=== PATIENT | male | born 1935 ===

== ENCOUNTER 2022-12-08 12:25 | Inpatient (IN) | payer MEDICARE ==
[~2022-12-08 12:25] MED LIST: Iopamidol-370 76% 500 ML 1 ML ONE
[2022-12-08 13:34] LABS: #Lymphocytes 0.9 thou/uL (1.20-3.40); #Monocytes 1.3 thou/uL (0.11-0.59); #Neutrophils 11.1 thou/uL (1.40-6.50); %Basophils 0.3 % (0.0-1.0); %Eosinophils 0.1 % (0.0-10.0); %Lymphocytes 6.9 % (21.0-51.0); %Monocytes 9.8 % (0.0-10.0); %Neutrophils 82.9 % (42.0-75.0); Hemoglobin 12.8 g/dL (14.0-18.0); Mean Corpuscular HGB CONC 32.6 g/dL (32.0-36.0); Mean Corpuscular Hemoglobin 29.9 pg (27.0-31.0); Mean Corpuscular Volume 91.7 fl (78.0-98.0); Mean Platelet Volume 8.9 fL (7.4-10.4); Platelet Count 200 10x3/uL (130-400); RBC Distribution Width 12.3 % (11.5-14.5); Red Blood Cell (RBC) Count 4.27 mill/uL (4.70-6.10); White Blood Cell (WBC) Count 13.4 10x3/uL (4.8-10.8)
[2022-12-08 13:53] LABS: ALT (SGPT) 36 U/L (8-55); AST (SGOT) 51 U/L (5-34); Albumin 3.9 g/dL (3.4-4.8); Alkaline Phosphatase 85 U/L (40-110); Anion Gap 18 mmol/L (10-20); BUN (Urea Nitrogen) 35 mg/dL (8.4-25.7); Bilirubin, Total 0.8 mg/dL (0.2-1.2); Calc. Creatinine Clearance 0 mL/min (70-130); Calcium 10.4 mg/dL (7.8-10.44); Carbon Dioxide 26 mmol/L (23-31); Chloride 109 mmol/L (98-107); Estimated GFR 36; Globulin 5.3 g/dL (2.4-3.5); Glucose 143 mg/dL (83-110); Potassium 4.8 mmol/L (3.5-5.1); Protein, Total 9.2 g/dL (5.8-8.1); Sodium 148 mmol/L (136-145)
[2022-12-08 14:41] LABS: CKMB 0.5 ng/mL (0-6.6)
[2022-12-08] MEDS ORDERED: hydrALAZINE 20 MG/ML VIAL ONE (16:29)
[2022-12-08 17:15] LABS: Bilirubin Negative (Negative); Blood, Urine 1+ (Negative); Clarity Clear (Clear); Glucose, Urine (Dipstick) Normal (Negative); Ketone, Urine Negative (Negative); Leukocyte 500 Leu/uL (Negative); Nitrite Negative (Negative); Protein, Urine (Dipstick) 30 mg/dL (Neg-Trace); Specific Gravity, Urine 1.023 (1.002-1.036); Squamous Epithelial 0-3 HPF (0-3); Urobilinogen Normal mg/dL (Less than 2); WBC/HPF Greater than 50 HPF (0-3); pH, Urine 7.5 (5.0-9.0)
[2022-12-08 17:16] LABS: Bacteria/HPF 1+ HPF (None Seen)
[2022-12-08] MEDS ORDERED: cefTRIAXone\\ROCEPHIN 2 GM VIAL ONE (18:37)
[2022-12-08] MEDS ORDERED: Acetaminophen 650 MG Suppository ONE (19:10)
[2022-12-08] MEDS ORDERED: Ondansetron PF 4 MG/2 ML Vial IVP PRN (19:47)
[2022-12-08] MEDS ORDERED: Dextrose 5% in Water 1,000 ML IV PRN (19:54)
[2022-12-08] MEDS ORDERED: HumaLOG 300 UNITS/3 ML VIAL SC PRN ×2 (19:54)
[2022-12-08] MEDS ORDERED: Dextrose 50% Abboject 50 ML SYRINGE SLOW IVP PRN (19:54)
[2022-12-08] MEDS ORDERED: Fleet Enema 133 ML BOT PR SCH (20:00)
[2022-12-08] MEDS ORDERED: Sodium Chloride 0.9% 500 ML IV SCH (20:00)
[2022-12-08] MEDS ORDERED: Pantoprazole 40 MG VIAL IVP SCH (20:00)
[2022-12-08 20:18] LABS: Amphetamine Not Detected (NotDetected); Barbiturates Screen Not Detected (NotDetected); Benzodiazepine Screen Not Detected (NotDetected); Cocaine Metabolite Screen Not Detected (NotDetected); Methadone Not Detected (NotDetected); Methamphetamine Not Detected (NotDetected); Opiate Screen Not Detected (NotDetected); Oxycodone Screen Not Detected (NotDetected); Phencyclidine (PCP) Not Detected (NotDetected); THC/Cannabinoid Screen Not Detected (NotDetected); Tricyclic Screen Not Detected (NotDetected)
[2022-12-08 20:36] LABS: Troponin I 0.063 ng/mL (< 0.028)
[2022-12-08] MEDS: Docusate Sodium 10 MG/1 ML Oral Suspension PO SCH (21:24)
[2022-12-08] MEDS: Heparin 5,000 UNITS/ML VIAL SC SCH (21:31)
[2022-12-08] MEDS: Sodium Chloride 0.9% 1,000 ML IV SCH (21:43)
[2022-12-08] MEDS ORDERED: Acetaminophen 650 MG Suppository PR PRN (23:00)
[2022-12-09 00:07] VITALS: BMI 18.8
[2022-12-09 00:27] LABS: Anion Gap 18 mmol/L (10-20); BUN (Urea Nitrogen) 36 mg/dL (8.4-25.7); Calc. Creatinine Clearance 23 mL/min (70-130); Calcium 9.8 mg/dL (7.8-10.44); Carbon Dioxide 23 mmol/L (23-31); Chloride 113 mmol/L (98-107); Estimated GFR 43; Glucose 144 mg/dL (83-110); Potassium 3.7 mmol/L (3.5-5.1); Sodium 150 mmol/L (136-145)
[2022-12-09 00:32] LABS: Troponin I 0.067 ng/mL (< 0.028)
[2022-12-09] MEDS ORDERED: Metoprolol Tartrate 5 MG/5 ML VIAL IVP SCH (02:45)
[2022-12-09] MEDS: Cefepime 1 GM in Sodium Chloride 0.9% 100 ML IVPB SCH (05:49)
[2022-12-09 06:05] LABS: #Lymphocytes 1.1 thou/uL (1.20-3.40); #Monocytes 1.3 thou/uL (0.11-0.59); #Neutrophils 12.2 thou/uL (1.40-6.50); %Basophils 0.1 % (0.0-1.0); %Eosinophils 0.1 % (0.0-10.0); %Lymphocytes 7.3 % (21.0-51.0); %Monocytes 8.9 % (0.0-10.0); %Neutrophils 83.6 % (42.0-75.0); Hemoglobin 12.5 g/dL (14.0-18.0); Mean Corpuscular HGB CONC 29.5 g/dL (32.0-36.0); Mean Corpuscular Hemoglobin 28.8 pg (27.0-31.0); Mean Corpuscular Volume 97.6 fl (78.0-98.0); Mean Platelet Volume 9.1 fL (7.4-10.4); Platelet Count 214 10x3/uL (130-400); RBC Distribution Width 12.4 % (11.5-14.5); Red Blood Cell (RBC) Count 4.34 mill/uL (4.70-6.10); White Blood Cell (WBC) Count 14.6 10x3/uL (4.8-10.8)
[2022-12-09] MEDS: Polyethylene Glycol 3350 17 GM Packet PO SCH (09:18)
[2022-12-09] MEDS: Heparin 5,000 UNITS/ML VIAL SC SCH ×2 (09:19→20:18)
[2022-12-09] MEDS: Pantoprazole 40 MG VIAL IVP SCH (09:19)
[2022-12-09 09:23] LABS: Albumin 3.3 g/dL (3.4-4.8)
[2022-12-09 09:24] LABS: Chloride 113 mmol/L (98-107); Potassium 3.8 mmol/L (3.5-5.1)
[2022-12-09 09:25] LABS: Glucose 129 mg/dL (83-110)
[2022-12-09 09:27] LABS: Anion Gap 18 mmol/L (10-20); Bilirubin, Total 0.5 mg/dL (0.2-1.2); Carbon Dioxide 26 mmol/L (23-31)
[2022-12-09 09:28] LABS: Alkaline Phosphatase 82 U/L (40-110)
[2022-12-09 09:29] LABS: Calc. Creatinine Clearance 22 mL/min (70-130); Estimated GFR 42
[2022-12-09 09:30] LABS: BUN (Urea Nitrogen) 37 mg/dL (8.4-25.7)
[2022-12-09 09:31] LABS: ALT (SGPT) 48 U/L (8-55); AST (SGOT) 65 U/L (5-34); Bilirubin, Direct 0.3 mg/dL (0.1-0.3)
[2022-12-09 09:34] LABS: Sodium 153 mmol/L (136-145)
[2022-12-09] MEDS: Sodium Chloride 0.9% 1,000 ML IV SCH (09:43)
[2022-12-09] MEDS ORDERED: Sodium Chloride 0.45 % 250 ML BAG IV SCH (09:45)
[2022-12-09] MEDS: Docusate Sodium 10 MG/1 ML Oral Suspension PO SCH (10:29)
[2022-12-09] MEDS: Docusate Sodium 100 MG/10 ML UDCUP PO SCH (20:18)
[2022-12-10] MEDS ORDERED: Sodium Chloride 0.45% 1,000 ML IV SCH (04:00)
[2022-12-10] MEDS: Cefepime 1 GM in Sodium Chloride 0.9% 100 ML IVPB SCH (05:47)
[2022-12-10 05:49] LABS: #Lymphocytes 1.1 thou/uL (1.20-3.40); #Monocytes 0.8 thou/uL (0.11-0.59); #Neutrophils 8.1 thou/uL (1.40-6.50); %Basophils 0.1 % (0.0-1.0); %Eosinophils 0.4 % (0.0-10.0); %Lymphocytes 11.2 % (21.0-51.0); %Monocytes 7.9 % (0.0-10.0); %Neutrophils 80.3 % (42.0-75.0); Hemoglobin 10.5 g/dL (14.0-18.0); Mean Corpuscular Hemoglobin 29.5 pg (27.0-31.0); Mean Corpuscular Volume 95.2 fl (78.0-98.0); Mean Platelet Volume 8.5 fL (7.4-10.4); Platelet Count 193 10x3/uL (130-400); RBC Distribution Width 12.1 % (11.5-14.5); Red Blood Cell (RBC) Count 3.56 mill/uL (4.70-6.10)
[2022-12-10 06:09] LABS: Anion Gap 14 mmol/L (10-20); BUN (Urea Nitrogen) 45 mg/dL (8.4-25.7); Calc. Creatinine Clearance 22 mL/min (70-130); Calcium 9.7 mg/dL (7.8-10.44); Carbon Dioxide 27 mmol/L (23-31); Chloride 116 mmol/L (98-107); Estimated GFR 41; Glucose 101 mg/dL (83-110); Magnesium 2.3 mg/dL (1.6-2.6); Potassium 3.4 mmol/L (3.5-5.1)
[2022-12-10 06:13] LABS: Sodium 154 mmol/L (136-145)
[2022-12-10] MEDS ORDERED: Metoprolol Tartrate 5 MG/5 ML VIAL IVP SCH (07:00)
[2022-12-10] MEDS: Dextrose 5% in Water 1,000 ML IV SCH ×2 (09:38→23:53)
[2022-12-10] MEDS: Pantoprazole 40 MG VIAL IVP SCH (09:39)
[2022-12-10] MEDS: Heparin 5,000 UNITS/ML VIAL SC SCH ×2 (09:39→21:04)
[2022-12-10] MEDS: Polyethylene Glycol 3350 17 GM Packet PO SCH (09:39)
[2022-12-10] MEDS: Docusate Sodium 100 MG/10 ML UDCUP PO SCH ×2 (10:59→21:04)
[2022-12-10] MEDS: Metoprolol Tartrate 100 MG TAB PO SCH (21:04)
[2022-12-11 05:13] LABS: #Eosinphils 0.2 thou/uL (0.0-0.7); #Lymphocytes 1.1 thou/uL (1.20-3.40); #Monocytes 0.7 thou/uL (0.11-0.59); #Neutrophils 6.6 thou/uL (1.40-6.50); %Eosinophils 1.8 % (0.0-10.0); %Lymphocytes 13.1 % (21.0-51.0); %Monocytes 8.5 % (0.0-10.0); %Neutrophils 76.6 % (42.0-75.0); Hemoglobin 10.1 g/dL (14.0-18.0); Mean Corpuscular HGB CONC 31.7 g/dL (32.0-36.0); Mean Corpuscular Hemoglobin 29.5 pg (27.0-31.0); Mean Corpuscular Volume 92.9 fl (78.0-98.0); Mean Platelet Volume 8.6 fL (7.4-10.4); Platelet Count 184 10x3/uL (130-400); RBC Distribution Width 12.2 % (11.5-14.5); Red Blood Cell (RBC) Count 3.43 mill/uL (4.70-6.10); White Blood Cell (WBC) Count 8.6 10x3/uL (4.8-10.8)
[2022-12-11 05:34] LABS: Anion Gap 11 mmol/L (10-20); BUN (Urea Nitrogen) 46 mg/dL (8.4-25.7); Calc. Creatinine Clearance 23 mL/min (70-130); Calcium 9.5 mg/dL (7.8-10.44); Carbon Dioxide 28 mmol/L (23-31); Chloride 115 mmol/L (98-107); Estimated GFR 43; Glucose 127 mg/dL (83-110); Magnesium 2.3 mg/dL (1.6-2.6); Potassium 3.4 mmol/L (3.5-5.1)
[2022-12-11 05:39] LABS: Sodium 151 mmol/L (136-145)
[2022-12-11] MEDS: Cefepime 1 GM in Sodium Chloride 0.9% 100 ML IVPB SCH (05:43)
[2022-12-11] MEDS ORDERED: Docusate 100 MG CAP PO SCH (09:00)
[2022-12-11] MEDS: Ferrous Sulfate 325 MG TAB PO SCH (09:22)
[2022-12-11] MEDS: hydrALAZINE 10 MG TAB PO SCH (09:26)
[2022-12-11] MEDS: Heparin 5,000 UNITS/ML VIAL SC SCH ×2 (09:26→21:40)
[2022-12-11] MEDS: Pantoprazole 40 MG VIAL IVP SCH (09:26)
[2022-12-11] MEDS: Potassium Chloride 20 MEQ TAB PO SCH (09:26)
[2022-12-11] MEDS: Furosemide 20 MG TAB PO SCH (09:26)
[2022-12-11] MEDS: Lisinopril 20 MG TAB PO SCH (09:27)
[2022-12-11] MEDS: metFORMIN 500 MG TAB PO SCH (09:27)
[2022-12-11] MEDS: Atorvastatin Calcium 40 MG TAB PO SCH (09:27)
[2022-12-11] MEDS: Tamsulosin HCl 0.4 MG CAP PO SCH (09:27)
[2022-12-11] MEDS: Polyethylene Glycol 3350 17 GM Packet PO SCH (09:27)
[2022-12-11] MEDS: Multivitamin W/ Minerals 1 TAB PO SCH (09:27)
[2022-12-11] MEDS: Metoprolol Tartrate 100 MG TAB PO SCH ×2 (09:27→21:40)
[2022-12-11] MEDS: Docusate Sodium 100 MG/10 ML UDCUP PO SCH ×2 (09:27→21:40)
[2022-12-11] MEDS: Dextrose 5% in Water 1,000 ML IV SCH (15:05)
[2022-12-11] MEDS: cefTRIAXone\\ROCEPHIN 1 GM in Sodium Chloride 0.9% 100 ML IVPB SCH (18:36)
[2022-12-12] MEDS: Dextrose 5% in Water 1,000 ML IV SCH ×2 (04:28→20:52)
[2022-12-12 05:30] LABS: #Eosinphils 0.3 thou/uL (0.0-0.7); #Lymphocytes 1.4 thou/uL (1.20-3.40); #Monocytes 0.8 thou/uL (0.11-0.59); #Neutrophils 5.4 thou/uL (1.40-6.50); %Basophils 0.2 % (0.0-1.0); %Eosinophils 3.7 % (0.0-10.0); %Lymphocytes 17.2 % (21.0-51.0); %Monocytes 9.8 % (0.0-10.0); %Neutrophils 69.1 % (42.0-75.0); Hemoglobin 9.9 g/dL (14.0-18.0); Mean Corpuscular HGB CONC 31.2 g/dL (32.0-36.0); Mean Corpuscular Hemoglobin 29.2 pg (27.0-31.0); Mean Corpuscular Volume 93.6 fl (78.0-98.0); Mean Platelet Volume 8.4 fL (7.4-10.4); Platelet Count 176 10x3/uL (130-400); RBC Distribution Width 11.9 % (11.5-14.5); Red Blood Cell (RBC) Count 3.37 mill/uL (4.70-6.10); White Blood Cell (WBC) Count 7.8 10x3/uL (4.8-10.8)
[2022-12-12 05:48] LABS: ALT (SGPT) 72 U/L (8-55); AST (SGOT) 84 U/L (5-34); Albumin 2.7 g/dL (3.4-4.8); Alkaline Phosphatase 65 U/L (40-110); Anion Gap 12 mmol/L (10-20); BUN (Urea Nitrogen) 35 mg/dL (8.4-25.7); Bilirubin, Total 0.4 mg/dL (0.2-1.2); Calc. Creatinine Clearance 28 mL/min (70-130); Calcium 9.1 mg/dL (7.8-10.44); Carbon Dioxide 26 mmol/L (23-31); Chloride 112 mmol/L (98-107); Estimated GFR 55; Globulin 3.9 g/dL (2.4-3.5); Glucose 119 mg/dL (83-110); Potassium 3.7 mmol/L (3.5-5.1); Protein, Total 6.6 g/dL (5.8-8.1); Sodium 146 mmol/L (136-145)
[2022-12-12] MEDS: Polyethylene Glycol 3350 17 GM Packet PO SCH (09:13)
[2022-12-12] MEDS: Atorvastatin Calcium 40 MG TAB PO SCH (09:13)
[2022-12-12] MEDS: Furosemide 20 MG TAB PO SCH (09:13)
[2022-12-12] MEDS: Ferrous Sulfate 325 MG TAB PO SCH (09:13)
[2022-12-12] MEDS: Docusate Sodium 100 MG/10 ML UDCUP PO SCH ×2 (09:13→20:39)
[2022-12-12] MEDS: hydrALAZINE 10 MG TAB PO SCH (09:13)
[2022-12-12] MEDS: Lisinopril 20 MG TAB PO SCH (09:13)
[2022-12-12] MEDS: Potassium Chloride 20 MEQ TAB PO SCH (09:14)
[2022-12-12] MEDS: Heparin 5,000 UNITS/ML VIAL SC SCH ×2 (09:14→20:39)
[2022-12-12] MEDS: Tamsulosin HCl 0.4 MG CAP PO SCH (09:14)
[2022-12-12] MEDS: Metoprolol Tartrate 100 MG TAB PO SCH ×2 (09:14→20:38)
[2022-12-12] MEDS: Multivitamin W/ Minerals 1 TAB PO SCH (09:14)
[2022-12-12] MEDS: metFORMIN 500 MG TAB PO SCH (09:14)
[2022-12-12] MEDS: Pantoprazole 40 MG VIAL IVP SCH (09:15)
[2022-12-12 10:59] LABS: INR-International Normal Ratio 1.1
[2022-12-12 11:00] LABS: PTT 74.7 sec (22.9-36.1)
[2022-12-12] MEDS ORDERED: Ondansetron HCl/PF 4 MG/2 ML Vial IVP PRN (15:24)
[2022-12-12] MEDS ORDERED: Promethazine HCl 25 MG/ML VIAL IM PRN (15:24)
[2022-12-12] MEDS ORDERED: Bupivacaine/Epinephrine 0.25% 30 ML VIAL ONE (15:37)
[2022-12-12] MEDS ORDERED: PHENYLEPHRINE-NS 100 MCG/ML 10 ML SYRINGE ONE (15:50)
[2022-12-12] MEDS ORDERED: Ondansetron PF 4 MG/2 ML Vial ONE (15:50)
[2022-12-12] MEDS ORDERED: fentaNYL PF 100 MCG/2 ML SYRINGE ONE (15:50)
[2022-12-12] MEDS ORDERED: Glycopyrrolate 0.2 MG/ML 5 ML SYRINGE ONE (15:50)
[2022-12-12] MEDS ORDERED: PROPOFOL 200 MG/20 ML VIAL ONE (15:50)
[2022-12-12] MEDS ORDERED: Rocuronium Bromide 10 MG/ML (10ML VIAL) ONE (15:50)
[2022-12-12] MEDS ORDERED: Lidocaine 1% PF 5 ML VIAL ONE (15:50)
[2022-12-12] MEDS ORDERED: NEOSTIGMINE 3 MG/3 ML SYR 3 MG/3 ML SYRINGE ONE (15:50)
[2022-12-12] MEDS ORDERED: Dexamethasone 20 MG/5 ML VIAL ONE (15:50)
[2022-12-12] MEDS ORDERED: SUGAMMADEX SODIUM 200 MG/2 ML VIAL ONE (16:41)
[2022-12-12] MEDS: Acetaminophen 650 MG Suppository PR SCH (19:34)
[2022-12-12] MEDS: cefTRIAXone\\ROCEPHIN 1 GM in Sodium Chloride 0.9% 100 ML IVPB SCH (20:38)
[2022-12-13] MEDS: Acetaminophen 650 MG Suppository PR SCH ×4 (00:37→19:22)
[2022-12-13 05:48] LABS: #Lymphocytes 1.1 thou/uL (1.20-3.40); #Monocytes 0.6 thou/uL (0.11-0.59); #Neutrophils 6.9 thou/uL (1.40-6.50); %Basophils 0.5 % (0.0-1.0); %Eosinophils 0.3 % (0.0-10.0); %Lymphocytes 12.7 % (21.0-51.0); %Monocytes 7.2 % (0.0-10.0); %Neutrophils 79.3 % (42.0-75.0); Hemoglobin 10.7 g/dL (14.0-18.0); Mean Corpuscular HGB CONC 31.2 g/dL (32.0-36.0); Mean Corpuscular Hemoglobin 28.8 pg (27.0-31.0); Mean Corpuscular Volume 92.2 fl (78.0-98.0); Mean Platelet Volume 8.5 fL (7.4-10.4); Platelet Count 206 10x3/uL (130-400); RBC Distribution Width 11.8 % (11.5-14.5); Red Blood Cell (RBC) Count 3.71 mill/uL (4.70-6.10); White Blood Cell (WBC) Count 8.7 10x3/uL (4.8-10.8)
[2022-12-13 06:05] LABS: ALT (SGPT) 77 U/L (8-55); AST (SGOT) 110 U/L (5-34); Alkaline Phosphatase 72 U/L (40-110); Anion Gap 12 mmol/L (10-20); BUN (Urea Nitrogen) 28 mg/dL (8.4-25.7); Bilirubin, Total 0.4 mg/dL (0.2-1.2); Calc. Creatinine Clearance 29 mL/min (70-130); Calcium 9.1 mg/dL (7.8-10.44); Carbon Dioxide 27 mmol/L (23-31); Chloride 106 mmol/L (98-107); Estimated GFR 57; Globulin 4.2 g/dL (2.4-3.5); Glucose 142 mg/dL (83-110); Potassium 4.2 mmol/L (3.5-5.1); Protein, Total 7.2 g/dL (5.8-8.1); Sodium 141 mmol/L (136-145)
[2022-12-13] MEDS: Metoprolol Tartrate 100 MG TAB PO SCH ×2 (08:49→21:00)
[2022-12-13] MEDS: Lisinopril 20 MG TAB PO SCH (08:49)
[2022-12-13] MEDS: Potassium Chloride 20 MEQ TAB PO SCH (08:49)
[2022-12-13] MEDS: Tamsulosin HCl 0.4 MG CAP PO SCH (08:49)
[2022-12-13] MEDS: Atorvastatin Calcium 40 MG TAB PO SCH (08:49)
[2022-12-13] MEDS: Docusate Sodium 100 MG/10 ML UDCUP PO SCH ×2 (08:50→21:00)
[2022-12-13] MEDS: Multivitamin W/ Minerals 1 TAB PO SCH (08:50)
[2022-12-13] MEDS: hydrALAZINE 10 MG TAB PO SCH (08:50)
[2022-12-13] MEDS: Ferrous Sulfate 325 MG TAB PO SCH (08:50)
[2022-12-13] MEDS: Polyethylene Glycol 3350 17 GM Packet PO SCH (08:50)
[2022-12-13] MEDS: Pantoprazole 40 MG VIAL IVP SCH (08:51)
[2022-12-13] MEDS: Heparin 5,000 UNITS/ML VIAL SC SCH ×2 (08:51→21:01)
[2022-12-13] MEDS: Senokot S 8.6-50 MG TAB PO SCH ×2 (10:04→21:00)
[2022-12-13] MEDS: Dextrose 5% in Water 1,000 ML IV SCH (10:11)
[2022-12-13] MEDS: cefTRIAXone\\ROCEPHIN 1 GM in Sodium Chloride 0.9% 100 ML IVPB SCH (18:17)
[2022-12-13] MEDS ORDERED: Acetaminophen 325 MG TAB PO PRN (20:08)
[2022-12-14 05:32] LABS: #Eosinphils 0.1 thou/uL (0.0-0.7); #Lymphocytes 1.2 thou/uL (1.20-3.40); #Monocytes 0.8 thou/uL (0.11-0.59); %Basophils 0.3 % (0.0-1.0); %Eosinophils 1.2 % (0.0-10.0); %Lymphocytes 13.4 % (21.0-51.0); %Monocytes 8.3 % (0.0-10.0); %Neutrophils 76.8 % (42.0-75.0); Mean Corpuscular HGB CONC 31.5 g/dL (32.0-36.0); Mean Corpuscular Hemoglobin 28.9 pg (27.0-31.0); Mean Corpuscular Volume 91.7 fl (78.0-98.0); Mean Platelet Volume 8.5 fL (7.4-10.4); Platelet Count 174 10x3/uL (130-400); RBC Distribution Width 11.8 % (11.5-14.5); Red Blood Cell (RBC) Count 3.47 mill/uL (4.70-6.10); White Blood Cell (WBC) Count 9.1 10x3/uL (4.8-10.8)
[2022-12-14 05:58] LABS: ALT (SGPT) 51 U/L (8-55); AST (SGOT) 83 U/L (5-34); Albumin 2.5 g/dL (3.4-4.8); Alkaline Phosphatase 71 U/L (40-110); Anion Gap 11 mmol/L (10-20); BUN (Urea Nitrogen) 23 mg/dL (8.4-25.7); Bilirubin, Total 0.4 mg/dL (0.2-1.2); Calc. Creatinine Clearance 33 mL/min (70-130); Carbon Dioxide 27 mmol/L (23-31); Chloride 107 mmol/L (98-107); Estimated GFR 66; Glucose 107 mg/dL (83-110); Lipase 52 U/L (8-78); Magnesium 1.9 mg/dL (1.6-2.6); Phosphorus 1.9 mg/dL (2.3-4.7); Potassium 3.8 mmol/L (3.5-5.1); Protein, Total 6.5 g/dL (5.8-8.1); Sodium 141 mmol/L (136-145)
[2022-12-14] MEDS ORDERED: Bisacodyl 10 MG SUPP PR SCH (08:30)
[2022-12-14] MEDS: Furosemide 20 MG TAB PO SCH (09:39)
[2022-12-14] MEDS: Metoprolol Tartrate 100 MG TAB PO SCH ×2 (09:39→20:50)
[2022-12-14] MEDS: Ferrous Sulfate 325 MG TAB PO SCH (09:39)
[2022-12-14] MEDS: metFORMIN 500 MG TAB PO SCH (09:39)
[2022-12-14] MEDS: hydrALAZINE 10 MG TAB PO SCH ×3 (09:39→20:50)
[2022-12-14] MEDS: Lisinopril 20 MG TAB PO SCH (09:39)
[2022-12-14] MEDS: Multivitamin W/ Minerals 1 TAB PO SCH (09:40)
[2022-12-14] MEDS: Potassium Chloride 20 MEQ TAB PO SCH (09:40)
[2022-12-14] MEDS: Docusate Sodium 100 MG/10 ML UDCUP PO SCH ×2 (09:40→20:50)
[2022-12-14] MEDS: Polyethylene Glycol 3350 17 GM Packet PO SCH (09:41)
[2022-12-14] MEDS: Atorvastatin Calcium 40 MG TAB PO SCH (09:41)
[2022-12-14] MEDS: Heparin 5,000 UNITS/ML VIAL SC SCH ×2 (09:41→20:49)
[2022-12-14] MEDS: Tamsulosin HCl 0.4 MG CAP PO SCH (09:41)
[2022-12-14] MEDS: Senokot S 8.6-50 MG TAB PO SCH ×2 (09:51→20:50)
[2022-12-14] MEDS ORDERED: Electrolyte Replacement Protocol 1 EACH FS SCH (17:00)
[2022-12-14] MEDS: cefTRIAXone\\ROCEPHIN 1 GM in Sodium Chloride 0.9% 100 ML IVPB SCH (18:11)
[2022-12-14] MEDS: PHOS-NAK 1 PKT PACK PO SCH ×2 (18:11→20:50)
[2022-12-14] MEDS ORDERED: Magnesium 2 GM/50 ML(in water) 2 GM in Premix Bag 1 BAG IVPB SCH (22:00)
[2022-12-15] MEDS ORDERED: Lansoprazole 3 MG/ML ORAL SUSPENSION PO SCH (09:00)
[2022-12-15] MEDS ORDERED: Potassium Bicarbonate/Cit Ac 20 MEQ TAB PO SCH (09:00)
[2022-12-15] MEDS ORDERED: Lansoprazole 15 MG/5 ML (BATCHED)UDCUP PO SCH (09:00)
[2022-12-15] MEDS: Heparin 5,000 UNITS/ML VIAL SC SCH (09:58)
[2022-12-15] MEDS: Multivitamin W/ Minerals 1 TAB PO SCH (09:59)
[2022-12-15] MEDS: Senokot S 8.6-50 MG TAB PO SCH (09:59)
[2022-12-15] MEDS: Furosemide 20 MG TAB PO SCH (09:59)
[2022-12-15] MEDS: Lisinopril 20 MG TAB PO SCH (09:59)
[2022-12-15] MEDS: Ferrous Sulfate 325 MG TAB PO SCH (09:59)
[2022-12-15] MEDS: Tamsulosin HCl 0.4 MG CAP PO SCH (10:00)
[2022-12-15] MEDS: Metoprolol Tartrate 100 MG TAB PO SCH (10:00)
[2022-12-15] MEDS: Polyethylene Glycol 3350 17 GM Packet PO SCH (10:00)
[2022-12-15] MEDS: Atorvastatin Calcium 40 MG TAB PO SCH (10:00)
[2022-12-15] MEDS: Docusate Sodium 100 MG/10 ML UDCUP PO SCH (10:00)
[2022-12-15] MEDS: hydrALAZINE 10 MG TAB PO SCH (10:02)
[2022-12-15 12:35] VITALS: BP 167/88; TEMP 97
== END 2022-12-15 13:00 | DRG 853 ==
LOC: ERS 12:25 → NEURO 18:22
PROVIDERS: ADMIT Family Medicine; ATTEND Family Medicine
PROC: 3E03329 Introduction of Other Anti-infective into Peripheral Vein, Percutaneous Approach (ICD-10-PCS; 2022-12-08)
PROC: 0FT44ZZ Resection of Gallbladder, Percutaneous Endoscopic Approach (ICD-10-PCS; principal; 2022-12-12)
DX: A41.9 Sepsis, unspecified organism (principal); R65.20 Severe sepsis without septic shock; Z66 Do not resuscitate; G93.41 Metabolic encephalopathy; K80.00 Calculus of gallbladder with acute cholecystitis without obstruction; E87.0 Hyperosmolality and hypernatremia; N17.9 Acute kidney failure, unspecified; N39.0 Urinary tract infection, site not specified; K59.00 Constipation, unspecified; N20.0 Calculus of kidney; F03.90 Unspecified dementia, unspecified severity, without behavioral disturbance, psychotic disturbance, mood disturbance, and anxiety; N40.0 Benign prostatic hyperplasia without lower urinary tract symptoms; E78.5 Hyperlipidemia, unspecified; I12.9 Hypertensive chronic kidney disease with stage 1 through stage 4 chronic kidney disease, or unspecified chronic kidney disease; K86.89 Other specified diseases of pancreas; K22.89 Other specified disease of esophagus; E11.22 Type 2 diabetes mellitus with diabetic chronic kidney disease; R13.12 Dysphagia, oropharyngeal phase; N18.30 Chronic kidney disease, stage 3 unspecified; Z79.899 Other long term (current) drug therapy; Z79.84 Long term (current) use of oral hypoglycemic drugs; Z86.16 Personal history of COVID-19
CPT/HCPCS: 36415; 36416; 51701; 70450; 71045; 74018; 74177; 76705; 80048; 80053; 80076; 80306; 81003; 81015; 82550; 82553; 83605; 83690; 83735; 84100; 84484; 85025; 85610; 85730; 86850; 86870; 86900; 86901; 86904; 86905; 86922; 87040; 87077; 87086; 88304; 93005; 93010; 96374; 96375; C1889; C9113; J0360; J0692; J0696; J1100; J1644; J2405; J2704; J3475; J3490; J7030; J7050; J7070; Q9967; U0003; U0005

== ENCOUNTER 2023-01-09 18:52 | Emergency (ER) | payer MEDICARE ==
[2023-01-09 22:11] LABS: ALT (SGPT) 52 U/L (8-55); AST (SGOT) 62 U/L (5-34); Albumin 2.7 g/dL (3.4-4.8); Alkaline Phosphatase 88 U/L (40-110); Anion Gap 12 mmol/L (10-20); BUN (Urea Nitrogen) 23 mg/dL (8.4-25.7); Bilirubin, Total 0.2 mg/dL (0.2-1.2); Calc. Creatinine Clearance 0 mL/min (70-130); Calcium 8.8 mg/dL (7.8-10.44); Carbon Dioxide 23 mmol/L (23-31); Chloride 112 mmol/L (98-107); Estimated GFR 53; Globulin 4.2 g/dL (2.4-3.5); Glucose 147 mg/dL (83-110); Potassium 3.8 mmol/L (3.5-5.1); Protein, Total 6.9 g/dL (5.8-8.1); Sodium 143 mmol/L (136-145)
[2023-01-09] MEDS ORDERED: Aspirin Chewable 81 MG TAB ONE (23:07)
[2023-01-09 23:41] LABS: #Eosinphils 0.1 thou/uL (0.0-0.7); #Lymphocytes 1.3 thou/uL (1.20-3.40); #Monocytes 1.1 thou/uL (0.11-0.59); #Neutrophils 6.6 thou/uL (1.40-6.50); %Basophils 0.2 % (0.0-1.0); %Eosinophils 1.4 % (0.0-10.0); %Lymphocytes 14.3 % (21.0-51.0); %Monocytes 11.6 % (0.0-10.0); %Neutrophils 72.5 % (42.0-75.0); Hemoglobin 8.5 g/dL (14.0-18.0); Mean Corpuscular HGB CONC 30.8 g/dL (32.0-36.0); Mean Corpuscular Hemoglobin 28.8 pg (27.0-31.0); Mean Corpuscular Volume 93.3 fl (78.0-98.0); Mean Platelet Volume 8.9 fL (7.4-10.4); Platelet Count 199 10x3/uL (130-400); RBC Distribution Width 13.5 % (11.5-14.5); Red Blood Cell (RBC) Count 2.96 mill/uL (4.70-6.10); White Blood Cell (WBC) Count 9.1 10x3/uL (4.8-10.8)
== END 2023-01-10 00:33 ==
LOC: ERS 18:52
DX: I82.611 Acute embolism and thrombosis of superficial veins of right upper extremity (principal); I10 Essential (primary) hypertension; Z79.899 Other long term (current) drug therapy
CPT/HCPCS: 36415; 80053